=== PATIENT | female | born 1975 | race Caucasian/White ===

== ENCOUNTER 2020-06-06 18:27 | Emergency (ER) | payer OTHER ==
[2020-06-06 19:34] LABS: HEMOGLOBIN 7.6 gm/dl (12.3-15.3); RED BLOOD COUNT 2.88 M/UL (4.00-5.10); WHITE BLOOD COUNT 3.1 K/UL (4.5-11.0)
[2020-06-06 19:54] LABS: BUN/CREATININE RATIO 9 (0-10)
== END 2020-06-06 22:00 | disposition home or self-care (01) ==
LOC: ER1 18:27
PROVIDERS: Internal Medicine
DX: R10.84 Generalized abdominal pain (principal); R07.9 Chest pain, unspecified; Z86.73 Personal history of transient ischemic attack (TIA), and cerebral infarction without residual deficits; Z90.710 Acquired absence of both cervix and uterus; Z88.5 Allergy status to narcotic agent
CPT/HCPCS: 71260; 80053; 81001; 85025; 96374; 96375; 99284; J2270; J2405; Q9967

== ENCOUNTER 2021-01-28 13:20 | Emergency (ER) | payer OTHER ==
[2021-01-28 14:35] LABS: HEMOGLOBIN 10.6 gm/dl (12.3-15.3); RED BLOOD COUNT 3.65 M/UL (4.00-5.10); WHITE BLOOD COUNT 8.2 K/UL (4.5-11.0)
[2021-01-28 15:10] LABS: BUN/CREATININE RATIO 17 (0-10)
[2021-01-28] MEDS ORDERED: MACROBID 100 M100 M1 PO (17:17)
== END 2021-01-28 17:57 | disposition home or self-care (01) ==
LOC: ER1 13:20
PROVIDERS: Family Medicine; Physician Assistant
DX: R25.1 Tremor, unspecified (principal); I10 Essential (primary) hypertension; Z86.73 Personal history of transient ischemic attack (TIA), and cerebral infarction without residual deficits
CPT/HCPCS: 70450; 71045; 80053; 80307; 81001; 82550; 82553; 83874; 84484; 85025; 93005; 96374; 99285; G0480; J2405